=== PATIENT | male | born 1940 | race African-American/Black ===

== ENCOUNTER 2020-05-07 08:51 | Emergency (ER) | payer OTHER ==
--- OUTSIDE RECORDS SUMMARY | 2020-05-07 08:54 | XMS REPORT | Continuity of Care Document ---
:1940 Author Organization [facility] t Address [address] [place] [address] Care Team Providers Name Role Phone Primitivo Martin DO Attending Clinician Julian GARZA Attending Clinician DANIA SHELTON Attending Clinician Unavailable DANIA SHELTON Admitting Clinician Unavailable Problems Condition Condition Condition Status Onset Resolution Last Treating Co mments Source Name Details Category Date Date Treatment Clinician Date Alcoholism Alcoholism Disease Active [facility]17 [facility] remission 00:00: [facility] saeed 00 [place] Essential Essential Disease Active [facility] hypertensi hypertensi 11-17 [facility] - on on 00:00: Medical 00 [place] Psoriasis Psoriasis Disease Active [facility] 11-17 [facility] - 00:00: Medical 00 [place] Small Small Disease Active [facility] bowel bowel 11-17 [facility] - obstructio obstructio 00:00: Me dical n n 00 Center Smoking 5 Smoking [address] [facility] pack year pack year 11-17 [facility] - history history 00:00: Medical 00 [place] Alzheimer' Alzheimer' Disease Active [facility] s dementia s dementia 11-17 [facility] [facility] - 00:00: Medical 00 Center 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 11[facility]17 [facility] - aneurysm aneurysm 00:00: Medica l 00 Center Rectal Rectal Disease Active Overview: [facility] bleeding bleeding 04-02 Overview: [facility] - 00:00: Added Medical 00 automatic Center ally from request for surgery [id number] Hypophosph Hypophosph Disease Active [facility] atemia atemia 6-14 [facility] - 00:00: Medical 00 Center Dyslipidem Dyslipidem Disease Active 2015-[address] ia ia 2-18 [facility] - 00:00: Medical 00 Center PAD PAD Disease Active 2015-[address] [facility] (periphera (periphera 2-18 [place] [facility] - l artery l artery 00:00: Medica l disease) disease) 00 Center S/P S/P Disease Active 2015-[address] [facility] femoral-po femoral-po 2-18 [place] [facility] - pliteal pliteal 00:00: Medical bypass bypass 00 Center surgery surgery Insomnia Insomnia Disease Active 2015-02 [facility]12 [facility] - 00:[facility]: Medical 00 [place] 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 Social History Social Habit Start Date Stop Date Quantity Comments Source Sex Assigned At [facility] yessy - [facility] Cigarettes smoked 2017-11-17 2017-11-[address] [facility] - current (pack per 00:00:00 00:00:00 Medical Center day) - Reported Cigarette 2017-11-17 2017-11-[address] [facility] - pack-years 00:00:00 00:00:00 [facility] Tobacco use and 2017-11-17 2017-11-17 Never used [facility] yessy - exposure 00:00:00 00:00:00 [facility] Alcohol intake 2017-11-17 2017-11-17 Current [facility] - 00:00:00 00:00:00 non-drinker of Medical Ce nter alcohol (finding) Smoking Status Start Date Stop Date Source Current every day smoker 2017-11-17 00:00:[address] [facility] Medications Ordered Filled Start Stop Current Ordering Indication Dosage Frequency Signature Comments Components Source Medication Medication Date Date Medication? Clinician (SIG) Name Name aspirin 81 Yes Take 1 [facility] MG EC 11-20 tablet [facility] - tablet 16:10: every day Medica l 23 by oral Center route with meals for 30 days. atenolol Yes Take [address] [facility] (TENORMIN) - tablet [facility] - 25 MG 16:10: every day Medical tablet 23 by oral Center route in the morning for 30 days. atorvastati Yes atorvastat [facility] n (LIPITOR) 11-20 in calcium [facility] [facility] - 80 MG 16:10: 80 mg tabs Medica l tablet 23 [place] furosemide Yes furosemide [facility] (LASIX) 20 11-20 20 mg tabs [facility] - MG tablet 16:10: Medical 23 Center gabapentin Yes gabapentin [facility] (NEURONTIN) 11-20 300 mg [facility] - 300 MG 16:10: caps Medical capsule 23 [place] hydroCHLORO Yes hydrochlor [facility] thiazide 11-20 othiazide [facility] - (HYDRODIURI 16:10: 25 mg tabs Medical L) 25 MG 23 Center tablet hydrOXYzine Yes 25mg Take [address] (VISTARIL) 11-20 by mouth. [facility] - 25 MG 16:10: Medical capsule 23 [place] ipratropium Yes ipratropiu [facility] -albuterol 11-20 m/ kinjal [facility] - (DUO-NEB) 16:10: albuter Medic al 0.5 mg-3 23 Center mg(2.5 mg base)/3 mL nebulizer solution losartan Yes Take [address] [facility] (COZAAR) 50 - tablet [facility] - MG tablet 16:10: every day Med ical 23 by oral Center route in the morning for 30 days. silver Yes APPLY [address] [facility] sulfADIAZIN 9-26 TIES A DAY [facility] [facility] - E 16:10: BY TOPICAL Medical (SILVADENE, [address] Center SSD) 1 % cream esomeprazol Yes TAKE [address] [facility] e (NEXIUM) 9- CAPSULE BY [facility] - 40 MG 00:00: MOUTH Medical capsule 00 2(TWO) Center TIMES DAILY FOR ACID REFLUX Procedures This patient has no known procedures. Plan of Care Planned Activity Planned Date Details Comments Source Future Scheduled 2019-10-27 INFLUENZA VACCINE (#1) [facility] - Test 00:00:00 [code = INFLUENZA Medical Ce nter VACCINE (#1)] Future Scheduled 2018-05-[address] [facility] - Test 00:00:00 WELLNESS (YEAR 2 or Medical Center FIRST YEAR if no IPPE) [code = MEDICARE ANNUAL WELLNESS (YEAR 2 or FIRST YEAR if no IPPE)] Future Scheduled 2006 PNEUMOCOCCAL 65+ [facility] - Test 00:00:00 (1 of 1 - Medical Center [id number] PCV13) [code = PNEUMOCOCCAL 65+ YRS (1 of 1 - [id number] PCV13)] Encounters Start End Encounter Admission Attending Care Care Encounter Source Date/Time Date/Time Type Type Clinicians Facility Department ID 2020-03-14 2020-03-14 Emergency [place] [id number] 09:44:00 14:57:00 Arleen Jarrett [id number] [place] [id number] [place] [id number] 2019-06-11 2019-06-11 [id number] 14:28:41 16:54:00 Elvin Jarrett [id number] [place] [id number] [place] [address] [id number] Results Test Description Test Time Test Comments Results Result [facility] e Comments RAD, CHEST, 1 2017-11-20 Reason for FINAL REPORT VIEW, NON DEPT 09:50:00 exam:->Thoracic PATIENT ID: aneurysmShould mere [id number] CLINICAL be performed at the HISTORY: Thoracic bedside?->Yes aneurysm TECHNIQUE: 1 view of the chest. COMPARISON: 11/19/2017 IMPRESSION: The NGT has been removed. Right lung base scarring/atelectasi s is again seen with a trace right pleural effusion versus blunting of the costophrenic angle. The left lung remains free of infiltrates or effusions. Tortuosity and ectasia of the thoracic aorta is again noted. Signed: Ger Brink MDReport Verified Date/Time: 11/20/2017 09:50:51 Reading Location: [facility] Radiology Reading Room PHORUS 2017-11-20 06:08:00 Test Item Value Reference Range Interpretation Comme nts PHOSPHORUS (BEAKER) (test code = 604) 2.4 mg/dL 2.3-4.7 [id number] 06:08:00 Test Item Value Reference Range Interpretation Comments MAGNESIUM (BEAKER) (test code = 2.1 mg/dL 1.6-2.6 627) BASIC METABOLIC [id number] 06:08:00 Test Item Value Reference Range Interpretation Comments SODIUM (BEAKER) 142 meq/L 136-145 (test code = 381) POTASSIUM (BEAKER) 3.3 meq/L 3.5-5.1 L (test code = 379) CHLORIDE (BEAKER) 104 meq/L 98-107 (test code = 382) CO2 (BEAKER) (test 29 meq/L 22-29 code = 355) BLOOD UREA NITROGEN 19 mg/dL 7-21 (BEAKER) (test code = 354) CREATININE (BEAKER) 0.92 mg/dL 0.57-1.25 (test code = 358) GLUCOSE RANDOM 74 mg/dL 70-105 (BEAKER) (test code = 652) CALCIUM (BEAKER) 8.8 mg/dL 8.4-10.2 (test code = 697) EGFR (BEAKER) (test 97 mL/min/1.73 ESTIMA LOKESH GFR IS code = 1092) sq m NOT ACCURATE CREATININE CLEARANCE IN PREDICTING GLOMERULAR FILTRATION RATE . ESTIMATED GFR I S NOT APPLICABLE FOR DIALYSIS PATIEN TS. [id number] 05:57:00 Test Item Value Reference Range Interpretation Comments PARTIAL THROMBOPLASTIN TIME 35.5 seconds 22.5-36.0 (BEAKER) (test code = 760) PROTHROMBIN [id number] 05:56:00 Test Item Value Reference Range Interpretation Comments PROTIME (BEAKER) (test code = 13.6 seconds 11.7-14.7 759) INR (BEAKER) (test code = 370) 1.0 <=5.9 RECOMMENDED COUMADIN/WARFARIN INR THERAPY RANGESSTANDARD DOSE: 2.0 - 3.0 Includes: PROPHYLAXIS forvenous thrombosis, systemic embolization; TREATMENT for venous thrombosis and/or pulmonary embolus.HIGH RISK: Target INR is 2.5-3.5 for patients with mechanical heart valves.CBC (HEMOGRAM ONLY)2017-11-20 05:45:00 Test Item Value Reference Range Interpretation Comments WHITE BLOOD CELL COUNT (BEAKER) 4.7 K/ L 3.5-10.5 (test code = 775) RED BLOOD CELL COUNT (BEAKER) 3.79 M/ L 4.63-6.08 L (test code = 761) HEMOGLOBIN (BEAKER) (test code = 10.8 GM/DL 13.7-17.5 L 410) HEMATOCRIT (BEAKER) (test code = 35.4 % 40.1-51.0 L 411) MEAN CORPUSCULAR VOLUME (BEAKER) 93.4 fL 79.0-92.2 H (test code = 753) MEAN CORPUSCULAR HEMOGLOBIN 28.5 pg 25.7-32.2 (BEAKER) (test code = 751) MEAN CORPUSCULAR HEMOGLOBIN CONC 30.5 GM/DL 32.3-36.5 L (BEAKER) (test code = 752) RED CELL DISTRIBUTION WIDTH 15.2 % 11.6-14.4 H (BEAKER) (test code = 412) PLATELET COUNT (BEAKER) (test 204 K/CU MM 150-450 code = 756) MEAN PLATELET VOLUME (BEAKER) 8.7 fL 9.4-12.4 L (test code = 754) NUCLEATED RED BLOOD CELLS 0 /100 WBC 0-0 (BEAKER) (test code = 413) RAD, ABDOMEN/KUB, 1 VIEW [id number] 14:36:00Reason for exam:->SBOFINAL REPORT TECHNIQUE: Supine radiograph of the abdomen dated 11/19/2017. HISTORY: Small bowel obstruction COMPARISON: Abdominal radiograph dated 11/18/2017. IMPRESSION:There are several, dilated loops of small bowel in the abdomen dated measuring up to 3.9 cm. No free intraperitoneal air. No abnormal soft tissue mass or calcification. Degenerative changes are seen in the lumbarspine. Signed: Bekah Florian MDReport Verified Date/Time: 11/19/2017 14:36:25 Reading Location: [facility] Radiology Reading Room RAD, CHEST, 1 VIEW, NON [id number] 07:31:00Reason for exam:->Thoracic aneurysmShould this be performed at the bedside?->YesFINAL REPORT CLINICAL HISTORY: Thoracic aneurysm TECHNIQUE: 1 view of the chest. COMPARISON: 11/18/2017 IMPRESSION: The tip of the nasogastric tube projects in the lower esophagusand should be repositioned into the stomach. Hyperexpansion of the lung volumes is again seen with blunting of the costophrenic angles, right greater than left. Right lower lung scarring or atelectasisis unchanged. Cardiomegaly is again seen with tortuosity and ectasia of the thoracic aorta, compatible with the clinical history. Signed: Ger Brink MDReport Verified Date/Time: 11/19/2017 07:31:18 Reading Location: [facility] Radiology Reading Room [id number] 07:04:00 Test Item Value Reference Range Interpretation Comments PHOSPHORUS (BEAKER) (test code = 2.9 mg/dL 2.3-4.7 604) [id number] 07:04:00 Test Item Value Reference Range Interpretation Comments MAGNESIUM (BEAKER) (test code = 2.3 mg/dL 1.6-2.6 627) BASIC METABOLIC [id number] 07:04:00 Test Item Value Reference Range Interpretation Comments SODIUM (BEAKER) 143 meq/L 136-145 (test code = 381) POTASSIUM (BEAKER) 4.0 meq/L 3.5-5.1 (test code = 379) CHLORIDE (BEAKER) 104 meq/L 98-107 (test code = 382) CO2 (BEAKER) (test 29 meq/L 22-29 code = 355) BLOOD UREA NITROGEN 21 mg/dL 7-21 (BEAKER) (test code = 354) CREATININE (BEAKER) 0.89 mg/dL 0.57-1.25 (test code = 358) GLUCOSE RANDOM 56 mg/dL 70-105 L (BEAKER) (test code = 652) CALCIUM (BEAKER) 9.2 mg/dL 8.4-10.2 (test code = 697) EGFR (BEAKER) (test 101 mL/min/1.73 ESTIM ATED GFR IS code = 1092) sq m NOT ACCURATE CREATININE CLEARANCE IN PREDICTING GLOMERULAR FILTRATION RATE . ESTIMATED GFR I S NOT APPLICABLE FOR DIALYSIS PATIEN TS. PROTHROMBIN [id number] 06:46:00 Test Item Value Reference Range Interpretation Comments PROTIME (BEAKER) (test code = 13.7 seconds 11.7-14.7 759) INR (BEAKER) (test code = 370) 1.1 <=5.9 RECOMMENDED COUMADIN/WARFARIN INR THERAPY RANGESSTANDARD DOSE: 2.0 - 3.0 Includes: PROPHYLAXIS forvenous thrombosis, systemic embolization; TREATMENT for venous thrombosis and/or pulmonary embolus.HIGH RISK: Target INR is 2.5-3.5 for patients with mechanical heart valves.[id number] 06:46:00 Test Item Value Reference Range Interpretation Comments PARTIAL THROMBOPLASTIN TIME 34.2 seconds 22.5-36.0 (BEAKER) (test code = 760) CBC (HEMOGRAM ONLY)2017-11-19 06:33:00 Test Item Value Reference Range Interpretation Comments WHITE BLOOD CELL COUNT (BEAKER) 6.8 K/ L 3.5-10.5 (test code = 775) RED BLOOD CELL COUNT (BEAKER) 3.80 M/ L 4.63-6.08 L (test code = 761) HEMOGLOBIN (BEAKER) (test code = 11.0 GM/DL 13.7-17.5 L 410) HEMATOCRIT (BEAKER) (test code = 36.1 % 40.1-51.0 L 411) MEAN CORPUSCULAR VOLUME (BEAKER) 95.0 fL 79.0-92.2 H (test code = 753) MEAN CORPUSCULAR HEMOGLOBIN 28.9 pg 25.7-32.2 (BEAKER) (test code = 751) MEAN CORPUSCULAR HEMOGLOBIN CONC 30.5 GM/DL 32.3-36.5 L (BEAKER) (test code = 752) RED CELL DISTRIBUTION WIDTH 15.2 % 11.6-14.4 H (BEAKER) (test code = 412) PLATELET COUNT (BEAKER) (test 230 K/CU MM 150-450 code = 756) MEAN PLATELET VOLUME (BEAKER) 8.9 fL 9.4-12.4 L (test code = 754) NUCLEATED RED BLOOD CELLS 0 /100 WBC 0-0 (BEAKER) (test code = 413) RAD, ABDOMEN/KUB, 1 VIEW [id number] 09:01:00Reason for exam:->sboFINAL REPORT TECHNIQUE: Single view of the abdomen. INDICATION: Small bowel obstruction. COMPARISON: None. FINDINGS:There is air and stool throughout the colon. Several loops of small bowel are mildly dilated. Surgical clips over both groins. Mild degenerative changes of lumbar spine. Calcification of the splenic artery. IMPRESSION:Nonspecific, mildly dilated loops of small bowel. There is a moderate amount of air and stool in the colon. Signed: Matti Dobbs [facility] Verified Date/Time: 11/18/2017 09:01:40 Reading Location: [facility] Diagnostic Imaging Reading Room - [place] [address] [id number] 08:57:00 Test Item Value Reference Range Interpretation Comments PHOSPHORUS (BEAKER) (test code = 2.6 mg/dL 2.3-4.7 604) [id number] 08:57:00 Test Item Value Reference Range Interpretation Comments MAGNESIUM (BEAKER) (test code = 2.4 mg/dL 1.6-2.6 627) BASIC METABOLIC [id number] 08:57:00 Test Item Value Reference Range Interpretation Comments SODIUM (BEAKER) 143 meq/L 136-145 (test code = 381) POTASSIUM (BEAKER) 4.1 meq/L 3.5-5.1 (test code = 379) CHLORIDE (BEAKER) 105 meq/L 98-107 (test code = 382) CO2 (BEAKER) (test 32 meq/L 22-29 H code = 355) BLOOD UREA NITROGEN 19 mg/dL 7-21 (BEAKER) (test code = 354) CREATININE (BEAKER) 1.04 mg/dL 0.57-1.25 (test code = 358) GLUCOSE RANDOM 94 mg/dL 70-105 (BEAKER) (test code = 652) CALCIUM (BEAKER) 9.6 mg/dL 8.4-10.2 (test code = 697) EGFR (BEAKER) (test 84 mL/min/1.73 ESTIMA LOKESH GFR IS code = 1092) sq m NOT ACCURATE CREATININE CLEARANCE IN PREDICTING GLOMERULAR FILTRATION RATE . ESTIMATED GFR I S NOT APPLICABLE FOR DIALYSIS PATIEN TS. [id number] 08:26:00 Test Item Value Reference Range Interpretation Comments PARTIAL THROMBOPLASTIN TIME 31.3 seconds 22.5-36.0 (BEAKER) (test code = 760) PROTHROMBIN [id number] 08:25:00 Test Item Value Reference Range Interpretation Comments PROTIME (BEAKER) (test code = 15.0 seconds 11.7-14.7 H 759) INR (BEAKER) (test code = 370) 1.2 <=5.9 RECOMMENDED COUMADIN/WARFARIN INR THERAPY RANGESSTANDARD DOSE: 2.0 - 3.0 Includes: PROPHYLAXIS forvenous thrombosis, systemic embolization; TREATMENT for venous thrombosis and/or pulmonary embolus.HIGH RISK: Target INR is 2.5-3.5 for patients with mechanical heart valves.CBC (HEMOGRAM ONLY)2017-11-18 08:24:00 Test Item Value Reference Range Interpretation Comments WHITE BLOOD CELL COUNT (BEAKER) 6.5 K/ L 3.5-10.5 (test code = 775) RED BLOOD CELL COUNT (BEAKER) 4.05 M/ L 4.63-6.08 L (test code = 761) HEMOGLOBIN (BEAKER) (test code = 11.8 GM/DL 13.7-17.5 L 410) HEMATOCRIT (BEAKER) (test code = 38.8 % 40.1-51.0 L 411) MEAN CORPUSCULAR VOLUME (BEAKER) 95.8 fL 79.0-92.2 H (test code = 753) MEAN CORPUSCULAR HEMOGLOBIN 29.1 pg 25.7-32.2 (BEAKER) (test code = 751) MEAN CORPUSCULAR HEMOGLOBIN CONC 30.4 GM/DL 32.3-36.5 L (BEAKER) (test code = 752) RED CELL DISTRIBUTION WIDTH 15.6 % 11.6-14.4 H (BEAKER) (test code = 412) PLATELET COUNT (BEAKER) (test 250 K/CU MM 150-450 code = 756) MEAN PLATELET VOLUME (BEAKER) 9.7 fL 9.4-12.4 (test code = 754) NUCLEATED RED BLOOD CELLS 0 /100 WBC 0-0 (BEAKER) (test code = 413) RAD, CHEST, 1 VIEW, NON [id number] 05:56:00Reason for exam:->Thoracic aneurysmShould this be performed at the bedside?->YesFINAL REPORT RAD, CHEST, 1 VIEW, NON DEPT INDICATION: Thoracic aneurysm COMPAR SHAHIDA: None FINDINGS: Portable frontal view of the chest. IMPRESSION: Support Lines: Enteric tube is present. The side port projects over the mid thoracic esophagus with the distal tip above the GE junction. Careful repositioning is advised. Lungs and pleura: Interstitial markings are coarsened, greater on the right, which may reflect edema or chronic disease. Small right effusion. No pneumothorax.Heart and mediastinum: Normal cardiac size. Marked enlargement of the proximal thoracic aorta.Additional findings: None. Signed: JR Pak Robert MDReport Verified Date/Time: 11/18/2017 05:56:27 Reading Location: [facility] C013T Transitional Reading Room
--- NOTE | 2020-05-07 09:47 | EDPHYS ---
Physician Documentation [facility] Name: Sherman Astudillo Age: 80 yrs Sex: Male : 1940 Arrival Date: 05/07/2020 Time: 08:55 Bed 18 Private MD: ED Physician Kyaw Fierro HPI: 05/07 09:17 This 80 yrs old Black Male presents to ER via Unassigned with complaints of Skin jmm Problem. 09:17 The patient's rash thought to be caused by Psoriasis. Onset: The symptoms/episode jmm began/occurred 25 year(s) ago. Associated signs and symptoms: Pertinent positives: itching, Pertinent negatives: swelling of lips, swelling of throat, swelling of tongue. The patient has experienced similar episodes in the past, several times. This is a 80 year old male with a history of psoriasis that presents to the ED with complaints of diffuse itching. Chronic lower back pain. Patient states the doctors in [place] are not helping him. . Historical: - Allergies: 09:21 No Known Allergies; bw - Home Meds: 09:21 None [Active]; bw - PMHx: 09:21 Hypertension; COPD; psoriasis; HDL; "Clogged arteries"; bw - Immunization history:: Adult Immunizations up to date. - Social history:: Smoking status: unknown. ROS: 09:17 Constitutional: Negative for fever, chills, and weight loss, Cardiovascular: Negative jmm for chest pain, palpitations, and edema, Respiratory: Negative for shortness of breath, cough, wheezing, and pleuritic chest pain. 09:17 Skin: Positive for rash. 09:17 All other systems are negative. Exam: 09:17 Constitutional: This is a well developed, well nourished patient who is awake, alert, jmm and in no acute distress. Head/Face: atraumatic. Eyes: EOMI, no conjunctival erythema appreciated ENT: Moist Mucus Membranes Neck: Trachea midline, Supple Chest/axilla: Normal chest wall appearance and motion. Cardiovascular: Regular rate and rhythm. No edema appreciated Respiratory: Normal respirations, no respiratory distress appreciated Abdomen/GI: Non distended, soft Back: Normal ROM 09:17 Skin: diffuse scaling lesions noted to the abdomen, extensor surfaces of the forearms. 09:17 Neuro: Orientation: is normal, Mentation: is normal, Memory: is normal. 09:17 Psych: Behavior/mood is pleasant, cooperative. Vital Signs: 09:00 Pulse 92; Resp 20; Temp 97.9; Pulse Ox 96% on R/A; Height 6 ft. 1 in. (185.42 cm); Pain bw 4/10; 09:23 BP 162 / 99; bw MDM: 09:16 Patient medically screened. [facility] 09:45 Data reviewed: vital signs, nurses notes. Counseling: I had a detailed discussion with atif the patient and/or guardian regarding: the historical points, exam findings, and any diagnostic results supporting the discharge/admit diagnosis, the need for outpatient follow up, to return to the emergency department if symptoms worsen or persist or if there are any questions or concerns that arise at home. ED course: Patient is alert and non toxic in appearance in the ED. Symptoms have been ongoing chronically. Patient mainly here for referrel. Will give list of available PCP's. Patient is otherwise given strict return precautions. . Administered Medications: 09:29 Drug: Decadron 10 mg Route: IM; Site: right deltoid; hb 09:56 Follow up: Response: No adverse reaction hb Disposition: 19:31 Co-signature as Attending Physician, Kyaw Fierro MD. rn Disposition: 05/07/20 09:47 Discharged to Home. Impression: Rash and other nonspecific skin eruption. - Condition is Stable. - Discharge Instructions: Rash. - Prescriptions for Hydroxyzine HCl 25 mg Oral Tablet - take 1 tablet by ORAL route every 6 hours As needed; 30 tablet. Prednisone 20 mg Oral Tablet - take 3 tablet by ORAL route once daily for 5 days; 15 tablet. - Medication Reconciliation Form, Thank You Letter, Antibiotic Education, Prescription Opioid Use form. - Follow up: Himanshu Henson MD; When: 2 - 3 days; Reason: Recheck today's complaints, Continuance of care, Re-evaluation by your physician. Signatures: Red Duke PA PA [facility] Kyaw Fierro MD MD rn Baxter, Heather, RN RN hb Webb, Bethany, RN RN bw Corrections: (The following items were deleted from the chart) 09:56 09:47 05/07/2020 09:47 Discharged to Home. Impression: Rash and other nonspecific skin hb eruption. Condition is Stable. Forms are Medication Reconciliation Form, Thank You Letter, Antibiotic Education, Prescription Opioid Use. Follow up: Himanshu Henson; When: 2 - 3 days; Reason: Recheck today's complaints, Continuance of care, Re-evaluation by your physician. atif
--- NOTE | 2020-05-07 09:47 | ER ---
Nurse's Notes [facility] Name: Sherman Astudillo Age: 80 yrs Sex: Male : 1940 Arrival Date: 05/07/2020 Time: 08:55 Bed 18 Private MD: Diagnosis: Rash and other nonspecific skin eruption Presentation: 05/07 09:00 Chief complaint: EMS states: psoriasis, itching and burning all over. Chronic bw condition. Worsening today. Coronavirus screen: Client denies travel out of the [place] in the last 14 days. At this time, the client does not indicate any symptoms associated with coronavirus-19. Ebola Screen: No symptoms or risks identified at this time. Initial Sepsis Screen: Does the patient meet any 2 criteria? No. Patient's initial sepsis screen is negative. Does the patient have a suspected source of infection? No. Patient's initial sepsis screen is negative. Risk Assessment: Do you want to hurt yourself or someone else? Patient reports no desire to harm self or others. Onset of symptoms was May 07, 2020. 09:00 Method Of Arrival: EMS: [facility] 09:00 Acuity: NICOLE 3 bw Triage Assessment: :21 General: Appears in no apparent distress. uncomfortable, Behavior is calm, cooperative, bw appropriate for age. Pain: Complains of pain in itching all over and sore. EENT: No deficits noted. Neuro: No deficits noted. Cardiovascular: No deficits noted. Respiratory: Airway is patent o2 with ems 91%. GI: No deficits noted. Derm: psoriasis Reports increased burning, itching, pain. Historical: - Allergies: : No Known Allergies; bw - Home Meds: : None [Active]; bw - PMHx: :21 Hypertension; COPD; psoriasis; HDL; "Clogged arteries"; bw - Immunization history:: Adult Immunizations up to date. - Social history:: Smoking status: unknown. Screenin: Abuse screen: Denies threats or abuse. Nutritional screening: No deficits noted. bw Tuberculosis screening: No symptoms or risk factors identified. Fall Risk None identified. Assessment: :23 Reassessment: see triage assessment. bw Vital Signs: 09:00 Pulse 92; Resp 20; Temp 97.9; Pulse Ox 96% on R/A; Height 6 ft. 1 in. (185.42 cm); Pain bw 4/10; 09:23 BP 162 / 99; bw ED Course: 08:55 Patient arrived in ED. ds1 09:06 Red Duke [facility] atif 09:06 Kyaw Fierro MD is Attending Physician. [facility] [place] 09:09 Yaz Lazar, RN is Primary Nurse. bw 09:19 Triage completed. bw 09:21 Arm band placed on right wrist. bw 09:23 Patient has correct armband on for positive identification. Bed in low position. Call bw light in reach. Side rails up X 1. Pulse ox on. NIBP on. 09:23 No provider procedures requiring assistance completed. Patient did not have IV access bw during this emergency room visit. 09:47 Himanshu Henson MD is Referral Physician. [facility] [place] Administered Medications: 09:29 Drug: Decadron 10 mg Route: IM; Site: right deltoid; hb 09:56 Follow up: Response: No adverse reaction hb Outcome: :47 Discharge ordered by MD. [facility] [place] 09:56 Discharged to home ambulatory. hb 09:56 Condition: stable 09:56 Discharge instructions given to patient, Instructed on discharge instructions, follow up and referral plans. medication usage, Demonstrated understanding of instructions, follow-up care, medications, Prescriptions given X 2. 09:56 Patient left the ED. hb Signatures: Red Duke PA PA jmm Sanford, Demi ds1 Kriss Bravo RN RN hb Yaz Lazar RN RN
[2020-05-07 10:00] VITALS: TEMP 97.9; O2SAT 96
[2020-05-07 10:01] VITALS: BP 162/99
[2020-05-07] MEDS ORDERED: dexAMETHasone 10 MG/ML VIAL ONE (10:01)
== END 2020-05-07 09:56 | disposition home or self-care (01) ==
LOC: ER 08:51
DX: R21 Rash and other nonspecific skin eruption (principal); I10 Essential (primary) hypertension
CPT/HCPCS: 96372; 99284; J1100